=== PATIENT | male | born 1960 | race Caucasian/White ===

== ENCOUNTER 2017-07-20 07:49 | Emergency (ER) | payer BC ==
--- NOTE | 2017-07-20 08:00 | EDM.PDOC ---
ED HPI GENERAL MEDICAL PROBLEM - General Chief Complaint: Chest Pain Stated Complaint: CHEST PAIN X 48 HRS Time Seen by Provider: 07/20/17 07:59 Source of Information: Reports: Patient, Family, RN, RN Notes Reviewed History Limitations: Reports: No Limitations - History of Present Illness INITIAL COMMENTS - FREE TEXT/NARRATIVE: Pt presents to the ER with c/o midsternal/epigastric chest pain for the past 48 hours. Patient states he has a large family history of cardiac disease, but he himself does not have any cardiac history. Pt states he smoke 1 1/2 packs of cigarettes per day. Pt states the pain is better when he is upright and moving around, worse when lying down. Pt admits that the pain may be worse after drinking coffee. Denies radiation to the left chest wall, neck, shoulder, jaw, or arm. Admits to history of back injury/pain, no history of acid reflux. Onset: Gradual Onset Date: 07/18/17 Duration: Waxing/Waning Location: Reports: Chest Quality: Reports: Ache, Sharp, Stabbing Severity: Moderate Associated Symptoms: Reports: No Other Symptoms. Denies: Cough, Fever/Chills, Headaches, Nausea/Vomiting Middle Chest Pain Score (Numeric/FACES): 6 - Related Data Allergies Allergy/AdvReac Type Severity Reaction Status Date / Time No Known Allergies Allergy Verified 07/20/17 07:54 Home Meds: Home Meds Hydrocodone/Acetaminophen [Hydrocodon-Acetaminophn 10-325] 1 tab PO Q4H PRN [History] Methocarbamol 750 mg PO PRN 07/20/17 [History] Past Medical History - Past Health History Medical/Surgical History: Denies Medical/Surgical History Musculoskeletal History: Reports: Back Pain, Chronic Other Musculoskeletal History: Chronic Back Pain since 2000. Social & Family History - Tobacco Use Years of Tobacco use: 33 Month/Year Tobacco Last Used: august - Alcohol Use Days Per Week of Alcohol Use: 0 - Recreational Drug Use Recreational Drug Use: No ED ROS GENERAL - Review of Systems Review Of Systems: ROS reveals no pertinent complaints other than HPI. ED EXAM, GENERAL - Physical Exam Exam: See Below Exam Limited By: No Limitations General Appearance: Alert, WD/WN, No Apparent Distress Eye Exam: Bilateral Eye: EOMI, Normal Inspection Ears: Normal External Exam, Hearing Grossly Normal Nose: Normal Inspection Throat/Mouth: Normal Inspection, Normal Voice, No Airway Compromise Head: Atraumatic, Normocephalic Neck: Normal Inspection, Supple, Non-Tender, Full Range of Motion Respiratory/Chest: No Respiratory Distress, No Accessory Muscle Use, Chest Non- Tender, Crackles (right base) Cardiovascular: Normal Peripheral Pulses, Regular Rate, Rhythm, No Edema, No Gallop, No JVD, No Murmur, No Rub Peripheral Pulses: 2+: Radial (L), Radial (R) GI/Abdominal: Normal Bowel Sounds, Soft, No Organomegaly, No Distention, No Abnormal Bruit, No Mass, Tender (epigastric) (Male) Exam: Deferred Rectal (Males) Exam: Deferred Back Exam: Normal Inspection, Decreased Range of Motion Extremities: Normal Inspection, Normal Range of Motion, Non-Tender, Normal Capillary Refill, No Pedal Edema Neurological: Alert, Oriented, CN II-XII Intact, Normal Cognition, Normal Gait, Normal Reflexes, No Motor/Sensory Deficits Psychiatric: Normal Affect, Normal Mood Skin Exam: Warm, Dry, Intact, Normal Color, No Rash Lymphatic: No Adenopathy EKG INTERPRETATION EKG Date: 07/20/17 Time: 08:16 Rhythm: NSR Rate (Beats/Min): 74 [place]: Normal P-Wave: Present QRS: Normal ST-T: Normal QT: Normal Comparison: NA - No Prior EKG Course - Vital Signs Last Recorded V/S: Last Vital Signs Temp 98.1 F 07/20/17 07:59 Pulse 80 07/20/17 07:59 Resp 18 07/20/17 07:59 BP 142/79 H 07/20/17 07:59 Pulse Ox 99 07/20/17 07:59 - Orders/Labs/Meds Orders: Active Orders 24 hr Category Date Time Status EKG 12 Lead [EKG Documentation Completion] [RC] URGENT Care 07/20/17 08:22 Active Peripheral IV Care [RC] . DIRECTED Care 07/20/17 08:26 Active UA W/MICROSCOPIC [URIN] Stat Lab 07/20/17 08:26 Ordered Peripheral IV Insertion Adult [OM.PC] Stat Oth 07/20/17 08:26 Ordered Labs: Laboratory Tests 07/20/17 07/20/17 Range/Units 08:12 08:12 WBC 6.5 (5.0-10.0) 10^3/uL RBC 5.37 (4.6-6.2) 10^6/uL Hgb 17.0 (14.0-18.0) g/dL Hct 48.5 (40.0-54.0) % MCV 90.3 (80-100) fL MCH 31.7 (27.0-34.0) pg MCHC 35.1 H (33.0-35.0) g/dL Plt Count 178 (150-450) 10^3/uL Neut % (Auto) 67.8 (42.2-75.2) % Lymph % (Auto) 16.7 L (20.5-50.1) % [place] % (Auto) 12.9 H (2-8) % Eos % (Auto) 2.3 (1.0-3.0) % Baso % (Auto) 0.3 (0.0-1.0) % Sodium 133 L (135-145) mmol/L Potassium 3.8 (3.6-5.0) mmol/L Chloride 100 L (101-111) mmol/L Carbon Dioxide 25.0 (21.0-31.0) mmol/L Anion Gap 11.8 BUN 12 (7-18) mg/dL Creatinine 1.0 (0.6-1.3) mg/dL Est Cr Clr Drug Dosing 91.61 mL/min Estimated GFR (MDRD) > 60 BUN/Creatinine Ratio 12.00 Glucose 130 H (74-105) mg/dL Calcium 8.8 (8.4-10.2) mg/dl Total Bilirubin 0.9 (0.2-1.0) mg/dL AST 18 (10-42) IU/L ALT 21 (10-60) IU/L Alkaline Phosphatase 62 (42-121) IU/L Troponin I < 0.02 (0.00-0.02) ng/ml Total Protein 6.7 (6.7-8.2) g/dl Albumin 4.0 (3.2-5.5) g/dl Globulin 2.7 Albumin/Globulin Ratio 1.48 Meds: Medications Discontinued Medications Generic Name Dose Route Start Last Admin Trade Name Freq PRN Reason Stop Dose Admin Famotidine 20 mg 07/20/17 09:06 Pepcid IVPUSH 07/20/17 09:07 ONETIME ONE Omeprazole 20 mg 07/20/17 09:23 07/20/17 09:32 Omeprazole PO 07/20/17 09:24 20 mg ONETIME ONE Administration Sodium Chloride 10 ml 07/20/17 08:26 07/20/17 08:39 Saline Flush FLUSH 10 ml ASDIRECTED PRN Administration Keep Vein Open - Radiology Interpretation Free Text/Narrative:: Chest xray: No acute findings See rad report Departure - Departure Time of Disposition: 10:01 Disposition: Home, Self-Care 01 Condition: Fair Clinical Impression: GERD (gastroesophageal reflux disease) Qualifiers: Esophagitis presence: esophagitis presence not specified Qualified Code(s): K21.9 - Gastro-esophageal reflux disease without esophagitis Instructions: Food Choices for Gastroesophageal Reflux Disease, Adult, Easy-to- Read, Nonspecific Chest Pain, [id number], Gastroesophageal Reflux Disease, Adult, [id number] Referrals: PCP,None [Primary Care Provider] - Forms: ED Department Discharge Additional Instructions: Follow up with your primary care facility Elevate Head of bed to 20 degrees Weight loss encouraged Refrain from smoking cigarettes Avoid eating late at night Stop chocolate, caffeine, alcohol, acidic and/or spicy foots Omeprazole 20mg daily as directed - My Orders Last 24 Hours: My Active Orders 07/20/17 08:22 EKG 12 Lead [EKG Documentation Completion] [RC] URGENT 07/20/17 08:26 Peripheral IV Care [RC] . DIRECTED UA W/MICROSCOPIC [URIN] Stat Peripheral IV Insertion Adult [OM.PC] Stat - Assessment/Plan Last 24 Hours: My Active Orders 07/20/17 08:22 EKG 12 Lead [EKG Documentation Completion] [RC] URGENT 07/20/17 08:26 Peripheral IV Care [RC] . DIRECTED UA W/MICROSCOPIC [URIN] Stat Peripheral IV Insertion Adult [OM.PC] Stat
[2017-07-20] MEDS: Sodium Chloride 0.9% 10 ML Syringe FLUSH PRN (08:39)
[2017-07-20 08:47] LABS: CHLORIDE,CL 100 mmol/L (101-111); SODIUM,NA 133 mmol/L (135-145)
[2017-07-20] MEDS: Omeprazole 20 MG Cap.CR PO ONE (09:32)
--- NOTE | 2017-07-20 09:36 | CR ---
Clinical history: 57-year-old male complaining of chest pain who was reported to have "no acute findi ngs (COPD)" on previous comparison chest radiograph 15 September 2013. Interpretation: Upright AP portable chest film confirms prominent azygous lobe, right apex with subtl e pleural pericardial scar, right lung base that were present on August 2013 exam. Normal cardiac silhouette without cephalization of vascular flow, signs of alveolar edema or dependen t pleural fluid accumulation. No new lung mass, hilar lymphadenopathy or focal lobar pneumonia. No atelectasis/collapse. No pneumothorax. CONCLUSION: No acute new cardiopulmonary abnormality since August 2013.
--- NOTE | 2017-07-23 13:09 | EKG ---
07/20/2017 - MI CORTEZ - FINDINGS: This 12-lead EKG shows normal sinus rhythm with no significant ST elevation or ST depression noted on this 12-lead EKG. Heart rate of 74. [facility] /[id number]
== END 2017-07-20 09:36 | disposition home or self-care (01) ==
LOC: DL.ED 07:49
DX: K21.9 Gastro-esophageal reflux disease without esophagitis (principal)
CPT/HCPCS: 36415; 71045; 80053; 84484; 85025; 93005; 99285; A9270; J7050

== ENCOUNTER 2017-08-17 05:56 | Day surgery (SDC) | payer BC ==
[2017-08-17] MEDS ORDERED: Dextrose 5%-0.45% NaCl 1,000 ML IV SCH (06:00)
[2017-08-17] MEDS ORDERED: Sodium Chloride 0.9% 10 ML Syringe FLUSH PRN (06:00)
[2017-08-17] MEDS ORDERED: Midazolam 1 MG/ML 2 ML SDV ONE (06:17)
[2017-08-17] MEDS ORDERED: fentaNYL 100 MCG/2 ML SDV ONE (06:17)
[2017-08-17] MEDS ORDERED: fentaNYL 100 MCG/2 ML SDV IV ONE ×2 (07:05→07:06)
[2017-08-17] MEDS ORDERED: Midazolam 1 MG/ML 2 ML SDV IV ONE ×2 (07:06→07:07)
--- NOTE | 2017-08-17 07:44 | OR ---
DATE: 08/17/2017 PROCEDURES PERFORMED: Esophagogastroduodenoscopy and multiple pinch biopsies. INSTRUMENT USED: GIF-H180 Olympus video panendoscope. PREMEDICATIONS: No oral topical anesthesia used. Fentanyl 100 mcg intravenous and Versed 2 mg intravenous. Nasal O2 cannula. The procedure was done under pulse oximetry, BP recording, and manufacturing engineering technologist. INDICATIONS: The patient with persistent upper abdominal pain and dyspepsia, unexplained and not responsive to medical measures. Esophagogastroduodenoscopy is performed for detection of any active erosive lesions, Bernard esophagus and/or malignancy also under consideration, H. pylori status to be determined, endoscopic hemostasis therapy if needed. DESCRIPTION OF PROCEDURE: The scope was passed with ease. Adequate visualization of the esophagus was made from proximal to distal areas. No upper esophageal lesions identified. No distal esophageal stricture. No uphill or downhill esophageal varices. No No-Mayes tear. Grade A erosive changes were noted by Magoffin criteria. No esophageal polyp or tumor mass identified. Z-line was seen at around 40 cm distal to the oral verge, configuration consistent with grade 1 by ZAP classification. No proximal gastric varices noted. Gastric fundus examination by retroflexion showed no polypoid lesions. No gastric ulcer, malignant mass, or vascular ectasia identified. Duodenal bulb showed no ulcer. Visualized second part of the duodenum was unremarkable. Multiple pinch biopsies were taken from the gastric antrum and proximal body and sent for PyloriTek test for H. pylori, and if negative in an hour, the tissue was to be sent for histopathology. No bleeding was noted from any of the visualized areas at the completion of the examination. Photographs were taken of the duodenal bulb, gastric antrum and fundus, and distal esophagus. IMPRESSION: Grade A gastroesophageal reflux disease. The patient tolerated the procedure well. [facility] /[id number]
== END 2017-08-17 09:16 | disposition home or self-care (01) ==
LOC: DL.ENDO 05:56
PROVIDERS: ATTEND Internal Medicine Gastroenterology
DX: R10.10 Upper abdominal pain, unspecified (principal); R10.13 Epigastric pain; K21.9 Gastro-esophageal reflux disease without esophagitis; F17.210 Nicotine dependence, cigarettes, uncomplicated; E66.09 Other obesity due to excess calories; E78.00 Pure hypercholesterolemia, unspecified
CPT/HCPCS: 87077; J2250; J3010; J7042

== ENCOUNTER 2024-01-22 15:40 | Inpatient (IN) | payer BC ==
[2024-01-22] MEDS ORDERED: Heparin Sodium 5,000 Units/ML Vial IVPUSH ONE (15:59)
[2024-01-22] MEDS: Heparin Sodium 5,000 Units/ML Vial IVPUSH ONE ×2 (16:38→22:53)
[2024-01-22] MEDS ORDERED: HYDROmorphone 0.5 MG/0.5 ML Syringe IVPUSH PRN (16:45)
[2024-01-22] MEDS ORDERED: Sodium Chloride 0.9% 10 ML Syringe FLUSH PRN (16:45)
[2024-01-22] MEDS ORDERED: Albuterol/Ipratropium 3.0-0.5 MG/3 ML Neb Soln NEB PRN (16:46)
[2024-01-22] MEDS ORDERED: Ondansetron 4 MG/2 ML SDV IVPUSH PRN (16:46)
[2024-01-22] MEDS ORDERED: Magnesium Hydroxide 400 MG/5 ML Susp 30 ML Cup PO PRN (16:46)
[2024-01-22] MEDS ORDERED: Bisacodyl 5 MG Tab PO PRN (16:46)
[2024-01-22] MEDS ORDERED: Sennosides/Docusate Sodium 50-8.6 MG Tab PO PRN (16:46)
[2024-01-22] MEDS ORDERED: Polyethylene Glycol 3350 Powder 17 GM Packet PO PRN (16:46)
[2024-01-22] MEDS ORDERED: Temazepam 15 MG Cap PO PRN (16:46)
[2024-01-22] MEDS: Heparin Sodium/0.45% NaCl 25,000 UNITS/500 ML BAG IV SCH ×2 (16:48)
[2024-01-22] MEDS: Sodium Chloride 0.9% 10 ML Syringe FLUSH SCH (20:18)
[2024-01-22] MEDS: Lidocaine 5% 700 MG Patch TOP ONE (21:29)
[2024-01-22] MEDS: Acetaminophen 325 MG Tab PO PRN (21:29)
[2024-01-23 06:13] LABS: BASOPHILS PERCENT AUTO 0.7 % (0.0-1.0); EOSINOPHILS PERCENT AUTO 3.5 % (1.0-3.0); HEMATOCRIT 45.3 % (40.0-54.0); HEMOGLOBIN 15.3 g/dL (14.0-18.0); LYMPHOCYTES PERCENT AUTO 14.3 % (20.5-50.1); MEAN CORPUSCULAR HEMOGLOBIN 31.3 pg (27.0-34.0); MEAN CORPUSCULAR HGB CONC 33.8 g/dL (33.0-35.0); MEAN CORPUSCULAR VOLUME 92.6 fL (80-100); MONOCYTES PERCENT AUTO 11.6 % (2-8); NEUTROPHILS PERCENT AUTO 69.9 % (42.2-75.2); PLATELET COUNT,PLT 160 10^3/uL (150-450); RED BLOOD CELL COUNT 4.89 10^6/uL (4.6-6.2)
[2024-01-23 06:29] LABS: A/G RATIO 1.2; ALBUMIN 3.5 g/dL (3.4-5.0); ANION GAP 11.2 mEq/L (7-13); BILIRUBIN TOTAL 0.7 mg/dL (0.2-1.0); BUN/CREATININE RATIO 11.5 (No establ ref range); CREATININE 1.04 mg/dL (0.70-1.30); EST CRCL DRUG DOSING (CG) 80.66 mL/min; POTASSIUM,K 4.2 mmol/L (3.5-5.1); PROTEIN TOTAL,TP 6.5 g/dL (6.4-8.2)
[2024-01-23] MEDS: Ezetimibe 10 MG Tab PO SCH (09:31)
[2024-01-23] MEDS: LIDODERM PATCH TRDERM SCH (09:31)
[2024-01-23] MEDS: Acetaminophen/oxyCODONE 325-5 MG Tab PO PRN (09:38)
[2024-01-23] MEDS: Apixaban 5 MG Tab PO SCH (20:40)
[2024-01-23] MEDS: Lidocaine 5% 700 MG Patch TOP SCH (20:41)
[2024-01-24 06:22] LABS: BASOPHILS PERCENT AUTO 0.2 % (0.0-1.0); EOSINOPHILS PERCENT AUTO 3.4 % (1.0-3.0); HEMATOCRIT 45.1 % (40.0-54.0); HEMOGLOBIN 15.2 g/dL (14.0-18.0); LYMPHOCYTES PERCENT AUTO 12.8 % (20.5-50.1); MEAN CORPUSCULAR HEMOGLOBIN 30.9 pg (27.0-34.0); MEAN CORPUSCULAR HGB CONC 33.7 g/dL (33.0-35.0); MEAN CORPUSCULAR VOLUME 91.7 fL (80-100); MONOCYTES PERCENT AUTO 11.9 % (2-8); NEUTROPHILS PERCENT AUTO 71.7 % (42.2-75.2); PLATELET COUNT,PLT 166 10^3/uL (150-450); RED BLOOD CELL COUNT 4.92 10^6/uL (4.6-6.2); WHITE BLOOD CELL COUNT,WBC 5.9 10^3/uL (5.0-10.0)
[2024-01-24 06:53] LABS: A/G RATIO 1.1; ALBUMIN 3.4 g/dL (3.4-5.0); ANION GAP 10.2 mEq/L (7-13); BILIRUBIN TOTAL 0.6 mg/dL (0.2-1.0); BUN/CREATININE RATIO 14.4 (No establ ref range); CALCIUM 9.1 mg/dL (8.5-10.1); CREATININE 0.97 mg/dL (0.70-1.30); EST CRCL DRUG DOSING (CG) 86.48 mL/min; POTASSIUM,K 4.2 mmol/L (3.5-5.1); PROTEIN TOTAL,TP 6.6 g/dL (6.4-8.2)
== END 2024-01-24 12:15 | disposition home or self-care (01) | DRG 197 ==
LOC: UNDOADMIN 15:40 → DL.MS 15:40
PROVIDERS: ADMIT Internal Medicine; ATTEND Internal Medicine
DX: I82.401 Acute embolism and thrombosis of unspecified deep veins of right lower extremity (principal); I83.93 Asymptomatic varicose veins of bilateral lower extremities; E78.5 Hyperlipidemia, unspecified; K21.9 Gastro-esophageal reflux disease without esophagitis; M47.816 Spondylosis without myelopathy or radiculopathy, lumbar region; I73.9 Peripheral vascular disease, unspecified; E78.00 Pure hypercholesterolemia, unspecified; H54.7 Unspecified visual loss; M54.9 Dorsalgia, unspecified; G89.29 Other chronic pain; E66.9 Obesity, unspecified; Z68.31 Body mass index [BMI] 31.0-31.9, adult; Z87.891 Personal history of nicotine dependence; Z98.890 Other specified postprocedural states; Z79.82 Long term (current) use of aspirin; Z79.899 Other long term (current) drug therapy; Z98.49 Cataract extraction status, unspecified eye
CPT/HCPCS: 36415; 80053; 83735; 85025; 85730; 99223; 99232; 99238; A9270-GY; J1644; J3490

== ENCOUNTER 2024-02-01 14:45 | Emergency (ER) | payer BC ==
[2024-02-01 17:46] LABS: BASOPHILS PERCENT AUTO 0.3 % (0.0-1.0); EOSINOPHILS PERCENT AUTO 3.4 % (1.0-3.0); HEMATOCRIT 44.8 % (40.0-54.0); HEMOGLOBIN 15.1 g/dL (14.0-18.0); LYMPHOCYTES PERCENT AUTO 14.4 % (20.5-50.1); MEAN CORPUSCULAR HEMOGLOBIN 30.8 pg (27.0-34.0); MEAN CORPUSCULAR HGB CONC 33.7 g/dL (33.0-35.0); MEAN CORPUSCULAR VOLUME 91.2 fL (80-100); MONOCYTES PERCENT AUTO 10.2 % (2-8); NEUTROPHILS PERCENT AUTO 71.7 % (42.2-75.2); PLATELET COUNT,PLT 214 10^3/uL (150-450); RED BLOOD CELL COUNT 4.91 10^6/uL (4.6-6.2); WHITE BLOOD CELL COUNT,WBC 7.7 10^3/uL (5.0-10.0)
[2024-02-01 18:09] LABS: A/G RATIO 1.2; ALBUMIN 3.9 g/dL (3.4-5.0); ANION GAP 11.2 mEq/L (7-13); BILIRUBIN TOTAL 0.6 mg/dL (0.2-1.0); BUN/CREATININE RATIO 12.4 (No establ ref range); CALCIUM 9.3 mg/dL (8.5-10.1); CREATININE 1.13 mg/dL (0.70-1.30); EST CRCL DRUG DOSING (CG) 73.12 mL/min; POTASSIUM,K 4.2 mmol/L (3.5-5.1); PROTEIN TOTAL,TP 7.1 g/dL (6.4-8.2)
[2024-02-01] MEDS: Iopamidol 755 Mg/ML 100 ML Bottle IVPUSH ONE (18:30)
[2024-02-01 18:36] LABS: APPEARANCE,URINE CLEAR (CLEAR); BILIRUBIN,URINE NEGATIVE (NEGATIVE); COLOR,URINE YELLOW (YELLOW); GLUCOSE,URINE NEGATIVE (NEGATIVE); KETONES,URINE NEGATIVE (NEGATIVE); LEUKOCYTE ESTERASE,URINE NEGATIVE (NEGATIVE); NITRITE,URINE NEGATIVE (NEGATIVE); OCCULT BLOOD,URINE NEGATIVE (NEGATIVE); PROTEIN,URINE NEGATIVE (NEGATIVE); UROBILINOGEN,URINE 0.2 mg/dL (0.2-1.0)
== END 2024-02-01 20:37 | disposition home or self-care (01) ==
LOC: DL.ED 14:45
DX: M54.50 Low back pain, unspecified (principal); Z87.891 Personal history of nicotine dependence; Z79.899 Other long term (current) drug therapy
CPT/HCPCS: 36415; 71275; 74176; 80053; 81003; 82550; 83690; 83735; 84484; 85025; 93005; 99285; Q9967